=== PATIENT | male | born 1935 | race Caucasian/White ===

== ENCOUNTER 2018-01-03 21:05 | Inpatient (IN) | payer MEDICARE ==
[~2018-01-03] VITALS: Ht 162.6 cm; Wt 68.0 kg
[~2018-01-03 21:05] MED LIST: ASPIR 8181 MG ORAL; ATORVASTATIN CA10 MG ORAL; BENAZEPRIL HCL5 MG ORAL; BUSPIRONE HCL10 M1 ORAL; CITALOPRAM HBR20 M1 ORAL; LANTUS SOL100 UNIT/1 SUBQ; METFORMIN HCL500 M1 ORAL; WARFARIN SODIUM4 MG ORAL
[2018-01-03 22:04] LABS: BASOPHILS % (AUTO) 0.7 % (0.0-2.0); EOSINOPHILS % (AUTO) 1.5 % (0.0-3.0); HEMATOCRIT 41.1 % (42.0-52.0); HEMOGLOBIN 13.6 G/DL (14.2-18.0); LYMPHOCYTES % (AUTO) 13.5 % (20.0-45.0); MEAN CORPUSCULAR VOLUME 87 FL (80-99); MONOCYTES % (AUTO) 10.2 % (1.0-10.0); NEUTROPHILS % (AUTO) 74.1 % (45.0-75.0); PLATELET COUNT 182 K/UL (150-450); RED BLOOD COUNT 4.69 M/UL (4.70-6.10); RED CELL DISTRIBUTION WIDTH 12.1 % (11.6-14.8); WHITE BLOOD COUNT 11.5 K/UL (4.8-10.8)
[2018-01-03 22:10] LABS: ANION GAP 10 mmol/L (5-15); BLOOD UREA NITROGEN 22 mg/dL (7-18); CALCIUM 9.2 MG/DL (8.5-10.1); CARBON DIOXIDE 25 MMOL/L (21-32); CHLORIDE 97 MMOL/L (98-107); CREATININE 1.2 MG/DL (0.55-1.30); INR 1.1 (0.9-1.1); POTASSIUM 4.2 MMOL/L (3.5-5.1); SODIUM 132 MMOL/L (136-145)
[2018-01-03 22:23] LABS: ALANINE AMINOTRANSFERASE 24 U/L (12-78); ALBUMIN 3.3 G/DL (3.4-5.0); ALBUMIN/GLOBULIN RATIO 0.5 (1.0-2.7); ALKALINE PHOSPHATASE 133 U/L (46-116); ASPARTATE AMINO TRANSFERASE 27 U/L (15-37); BILIRUBIN,TOTAL 0.6 MG/DL (0.2-1.0); CKMB < 0.5 NG/ML (0.0-3.6); CREATINE KINASE 55 U/L (26-308)
[2018-01-03 23:00] VITALS: BP 141/68
--- NOTE | 2018-01-03 23:33 | Diagnostic Imaging Report ---
EXAM: CT Head Without Intravenous Contrast CLINICAL HISTORY: AMS TECHNIQUE: Axial computed tomography images of the head/brain without intravenous contrast. CTDI is 0.15, 70.38, 70.38 mGy and DLP is 2857 mGy-cm. One or more of the following dose reduction techniques were used: automated exposure control, adjustment of the mA and/or kV according to patient size, use of iterative reconstruction technique. COMPARISON: No relevant prior studies available. FINDINGS: Limitations: Evaluation is limited secondary to artifact. Brain: Cerebral atrophy. Decreased density in the white matter which is nonspecific but is likely related to small vessel ischemic changes. Old small lacunar infarct suspected in the basal ganglia on the right. Area of encephalomalacia in the right frontal region. No hemorrhage. Ventricles: Unremarkable. Bones/joints: Unremarkable. No acute fracture. Soft tissues: Unremarkable. Sinuses: Areas of mild mucosal thickening in the paranasal sinuses. Mastoid air cells: Unremarkable as visualized. No mastoid effusion. IMPRESSION: No definite CT evidence for acute intracranial abnormality. Cerebral atrophy with probable small vessel ischemic changes. Old small lacunar infarct suspected in the basal ganglia on the right.
[2018-01-04 01:00] VITALS: BP 136/73
[2018-01-04 03:00] VITALS: BP 120/60
--- NOTE | 2018-01-04 03:09 | Emergency Room Report ---
History of Present Illness General Chief Complaint: Generalized Weakness Source: Patient, Family Member, EMS Present Illness HPI 82-year-old male presents ED for evaluation. Patient brought in by daughter. For evaluation of weakness. Patient has been feeling increasingly weak for the last few days. Daughter states that symptoms got worse today so family called 911. Patient has dementia and is nonverbal at baseline. No reported fevers or chills. No cough. Patient received flu shot yesterday by PMD. No reported chest pain or shortness of breath. States there is previous history of stroke with some residual left-sided facial droop. Unclear whether facial droop is worse than baseline. No other aggravating relieving factors. No other associated symptoms Allergies: Coded Allergies: No Known Allergies (Unverified , 08/20/15) Patient History Past Medical History: DM, HTN, AFib, CVA/TIA, dementia Past Surgical History: pacemaker Pertinent Family History: none Social History: Denies: smoking, alcohol use, drug use Immunizations: UTD Reviewed Nursing Documentation: PMH: Agreed; PSxH: Agreed Nursing Documentation-PMH Hx Cardiac Problems: Yes - afib Hx Hypertension: Yes Hx Pacemaker: Yes - left chest Hx Diabetes: Yes Hx Cancer: No Hx Gastrointestinal Problems: No Hx Neurological Problems: Yes Hx Cerebrovascular Accident: Yes Hx Transient Ischemic Attacks: Yes Hx Dementia: Yes Hx Alzheimer's Disease: Yes Hx Weakness: Yes Review of Systems All Other Systems: limited Physical Exam Vital Signs Date Time Temp Pulse Resp B/P (MAP) Pulse Ox O2 Delivery O2 Flow Rate FiO2 01/03/18 20:53 98.2 67 18 150/80 97 Room Air Sp02 EP Interpretation: reviewed, normal General Appearance: other - nonverbal Head: normocephalic Eyes: bilateral eye normal inspection, bilateral eye PERRL ENT: normal ENT inspection Neck: normal inspection Respiratory: chest non-tender, lungs clear, normal breath sounds, speaking full sentences Cardiovascular #1: regular rate, rhythm, no edema Gastrointestinal: normal bowel sounds, non tender, soft, non-distended, no guarding, no rebound Rectal: deferred Genitourinary: no CVA tenderness Musculoskeletal: back normal, normal range of motion Neurologic: alert, responsive, motor strength/tone normal, sensory intact, speech normal, other - L sided facial droop Psychiatric: other - nonverbal Skin: normal inspection Lymphatic: normal inspection Medical Decision Making Diagnostic Impression: Primary Impression: Episode of generalized weakness ER Course Hospital Course 82-year-old male presents ED with increased weakness 1 day. Nonverbal at baseline. Differential diagnoses include: DC/unstable angina, arrythmia, dehydration, CVA/ TIA Clinical course Patient placed on stretcher. on monitor worker. After initial history and physical I ordered labs, EKG, chest x-ray, IVFs, CT Brain labs reviewed- no leukocytosis, hemoglobin/hematocrit ok, electrolytes okay, troponins negative EKG- aflutter, no acute ischemic changes interpreted by me Chest x-ray- pacemaker, no acute process CT brain- no acute ischemic changes There is question if the patient droop on the left side is increased from baseline. However patient is out of the window for acute therapeutic intervention for possible CVA. There is full movement of both extremities. Case discussed with Dr. Grimes and he agreed to accept the patient to his service for further care and support I. I feel this is a highly complex case requiring extensive working including EKG/Rhythm strip, Xray/CT/US, Blood/urine lab work, repeat exams while in ED, and administration of strong opiates/narcotics for pain control, admission to hospital or close patient follow up. Diagnosis - episode of generalized weakness admitted to telemetry in serious condition Labs Test 01/03/18 21:30 White Blood Count 11.5 K/UL (4.8-10.8) Red Blood Count 4.69 M/UL (4.70-6.10) Hemoglobin 13.6 G/DL (14.2-18.0) Hematocrit 41.1 % (42.0-52.0) Mean Corpuscular Volume 87 FL (80-99) Mean Corpuscular Hemoglobin 29.0 PG (27.0-31.0) Mean Corpuscular Hemoglobin Concent 33.1 G/DL (32.0-36.0) Red Cell Distribution Width 12.1 % (11.6-14.8) Platelet Count 182 K/UL (150-450) Mean Platelet Volume 8.9 FL (6.5-10.1) Neutrophils (%) (Auto) 74.1 % (45.0-75.0) Lymphocytes (%) (Auto) 13.5 % (20.0-45.0) Monocytes (%) (Auto) 10.2 % (1.0-10.0) Eosinophils (%) (Auto) 1.5 % (0.0-3.0) Basophils (%) (Auto) 0.7 % (0.0-2.0) Prothrombin Time 11.6 SEC (9.30-11.50) Prothromb Time International Ratio 1.1 (0.9-1.1) Activated Partial Thromboplast Time 33 SEC (23-33) Sodium Level 132 MMOL/L (136-145) Potassium Level 4.2 MMOL/L (3.5-5.1) Chloride Level 97 MMOL/L (98-107) Carbon Dioxide Level 25 MMOL/L (21-32) Anion Gap 10 mmol/L (5-15) Blood Urea Nitrogen 22 mg/dL (7-18) Creatinine 1.2 MG/DL (0.55-1.30) Estimat Glomerular Filtration Rate mL/min (>60) Glucose Level 109 MG/DL (74-106) Lactic Acid Level 1.70 mmol/L (0.4-2.0) Calcium Level 9.2 MG/DL (8.5-10.1) Total Bilirubin 0.6 MG/DL (0.2-1.0) Aspartate Amino Transf (AST/SGOT) 27 U/L (15-37) Alanine Aminotransferase (ALT/SGPT) 24 U/L (12-78) Alkaline Phosphatase 133 U/L (46-116) Total Creatine Kinase 55 U/L (26-308) Creatine Kinase MB < 0.5 NG/ML (0.0-3.6) Creatine Kinase MB Relative Index 0.9 Troponin I 0.015 ng/mL (0.000-0.056) Total Protein 9.4 G/DL (6.4-8.2) Albumin 3.3 G/DL (3.4-5.0) Globulin 6.1 g/dL Albumin/Globulin Ratio 0.5 (1.0-2.7) EKG Diagnostic Results Rate: normal Rhythm: NSR ST Segments: no acute changes ASA given to the pt in ED: No Rhythm Strip Diag. Results EP Interpretation: yes Rhythm: NSR, no PVC's, no ectopy Chest X-Ray Diagnostic Results Chest X-Ray Diagnostic Results : Chest X-Ray Ordered: Yes # of Views/Limited/Complete: 1 View Indication: Other - weakness EP Interpretation: Yes Interpretation: no consolidation, no effusion, no pneumothorax, no acute cardiopulmonary disease, other - pacemaker Impression: No acute disease Electronically Signed by: Electronically signed by Ryder Schuster MD CT/MRI/US Diagnostic Results CT/MRI/US Diagnostic Results : Imaging Test Ordered: CT Head Impression chronic ischemic changes. no acute process Last Vital Signs Date Time Temp Pulse Resp B/P (MAP) Pulse Ox O2 Delivery O2 Flow Rate FiO2 01/04/18 01:00 98.4 67 16 136/73 99 Room Air Status: improved Disposition: ADMITTED INPATIENT Condition: Serious Referrals: [facility],REFERRING (PCP) Ryder Schuster MD Jan 04, 2018 03:09
[2018-01-04 04:00] VITALS: BP 127/65
[2018-01-04] MEDS ORDERED: TRULICITY0.75 MG/0. SQ (04:10)
[2018-01-04 08:00] VITALS: BP 157/85
--- NOTE | 2018-01-04 10:01 | Diagnostic Imaging Report ---
Indication: Altered mental status Technique: One view of the chest Comparison: 08/20/2015 Findings: Left chest pacemaker again demonstrated. Patient is rotated to the right. The heart size is normal. The aorta is tortuous ectatic and calcified. Bilateral paratracheal prominence is unchanged. Impression: No acute process. Findings as noted This agrees with the preliminary interpretation provided by the emergency room physician
[2018-01-04 12:00] VITALS: BP 150/94
[2018-01-04 16:00] VITALS: BP 150/83
--- NOTE | 2018-01-04 16:15 | History & Physical ---
History and Physical History & Physicial dict Kyle Grimes MD Jan 04, 2018 16:15
[2018-01-04] MEDS ORDERED: 1/2 NS 1000ml IV ONE (17:01)
--- NOTE | 2018-01-04 21:45 | History and Physical Report ---
DATE OF ADMISSION: 01/03/2018 HISTORY OF PRESENT ILLNESS: The patient is an 82-year-old man, who came to the emergency department from home by paramedics because of severe weakness. The family was with him and said that he was suddenly unable to walk and more confused than his usual baseline dementia. He was evaluated in the emergency department and the vital signs were stable and laboratory studies were unremarkable. CT of the brain did show an old lacunar infarct. The daughter says that he has had a TIA in the past with a history of atrial fibrillation and is on Eliquis. She states that this episode is similar to the previous episodes like that. ALLERGIES: None. MEDICATIONS: Reviewed and reconciled. SOCIAL HISTORY: He lives at home with the family. Does not drink or smoke. He had a flu shot yesterday. 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 REVIEW OF SYSTEMS: Otherwise, notable only for one episode of chest pain that has resolved today. He was able to ambulate independently. PHYSICAL EXAMINATION: GENERAL: The patient is alert, but confused. VITAL SIGNS: Stable. HEENT: The head is normocephalic. NECK: No jugular venous distention. CHEST: Clear. CARDIAC: . Rhythm on the monitor is atrial fibrillation and flutter. ABDOMEN: Soft and nontender. EXTREMITIES: No clubbing, cyanosis, or edema. NEUROLOGIC: Mild left-sided weakness. Alert and responsive, but confused, in German with daughter interpreting. IMPRESSION: 1. TIA with history of TIA and stroke. 2. Atrial fibrillation, on anticoagulants. 3. Hypertension. 4. Alzheimer dementia. 5. History of stroke and TIA. 6. Hyperlipidemia. 7. Diabetes. PLAN: The patient will be going home with his daughter who is requested discharge as he seems to have recovered from this TIA episode. Kyle Grimes M.D. DR: ROEL JOB#: [id number] CC:
--- NOTE | 2018-01-05 07:08 | Discharge Summary ---
Discharge Summary Discharge Summary _ DATE OF ADMISSION: 01/03/2018 DATE OF DISCHARGE: 01/04/2018 BRIEF HOSPITAL COURSE: Patient is an 82-year-old male, who came to the emergency department from home via paramedics due to severe weakness. Family was with him and suddenly was unable to walk and was more confused than his usual baseline dementia. He was evaluated at the emergency department. CAT scan of the brain showed an old lacunar infarct. Blood work and vital signs were unremarkable. Daughter stated he had TIA in the past with a history of atrial fibrillation, on Eliquis. He had a similar previous episode. He was admitted for TIA. Following day, on examination, patient was alert and responsive, there was mild left sided weakness. Patient had recovered from TIA episode. He was discharged home, to follow-up as outpatient. FINAL DIAGNOSES: TIA with history of TIA and stroke Atrial fibrillation, on anticoagulation Hypertension Alzheimer's dementia Hyperlipidemia Diabetes DISPOSITION: Patient was discharged home with family. DISCHARGE MEDICATIONS: Refer to Discharge Medication List. DISCHARGE INSTRUCTIONS: Follow up with PCP in a week. I have been assigned to dictate discharge summary on this account, and I was not involved in the patient's management. Sharron Hanson NP Jan 05, 2018 07:08
== END 2018-01-04 18:13 | disposition home or self-care (01) | DRG 69 ==
LOC: EDBD 21:05 → EMR 21:15 → 3E 22:43 → EDBEDREQ 23:29 → 2E 01-04 01:49
DX: G45.9 Transient cerebral ischemic attack, unspecified (principal); I69.354 Hemiplegia and hemiparesis following cerebral infarction affecting left non-dominant side; I48.91 Unspecified atrial fibrillation; Z79.01 Long term (current) use of anticoagulants; I10 Essential (primary) hypertension; G30.9 Alzheimer's disease, unspecified; F02.80 Dementia in other diseases classified elsewhere, unspecified severity, without behavioral disturbance, psychotic disturbance, mood disturbance, and anxiety; E78.5 Hyperlipidemia, unspecified; E11.9 Type 2 diabetes mellitus without complications
CPT/HCPCS: 36415; 70450; 71045; 80053; 82550; 82553; 83605; 84484; 85025; 85610; 85730; 93005; 99285